=== PATIENT | female | born 1980 | race Caucasian/White ===

== ENCOUNTER 2017-08-10 20:54 | Emergency (ER) | payer OTHER ==
[~2017-08-10] VITALS: Ht 167.6 cm; Wt 63.0 kg
[~2017-08-10 20:54] MED LIST: ERYTHROMYCIN500 MG PO
[2017-08-10] MEDS ORDERED: FA-80.8 MG (21:08)
== END 2017-08-11 05:23 | disposition home or self-care (01) ==
LOC: ER 20:54
DX: O02.1 Missed abortion (principal)